=== PATIENT | female | born 1955 | race Hispanic/Latino ===

== ENCOUNTER 2020-07-13 15:31 | Inpatient (IN) | payer MEDICARE, MEDICAID ==
[2020-07-13] MEDS ORDERED: Ondansetron ODT 4 MG TAB PO PRN (16:18)
[2020-07-13] MEDS: Ventolin HFA Inhaler 60 PUFF INHALER INH SCH ×2 (18:15→21:28)
[2020-07-13] MEDS: Atorvastatin Calcium 20 MG TAB PO SCH (21:28)
[2020-07-13] MEDS: Doxycycline 100 MG CAP PO SCH (21:28)
[2020-07-13] MEDS: guaiFENesin ER 600 MG TAB PO SCH (21:28)
[2020-07-13] MEDS: Enoxaparin Sodium 40 MG/0.4 ML SYRINGE SC SCH (21:29)
[2020-07-13] MEDS: Mometasone/Formoterol 200/5 60 PUFF INH SCH (21:35)
[2020-07-14] MEDS: Ventolin HFA Inhaler 60 PUFF INHALER INH SCH ×6 (00:54→21:21)
[2020-07-14 07:17] LABS: Albumin 3.3 g/dL (3.4-4.8); Anion Gap 15 mmol/L (10-20); BUN (Urea Nitrogen) 25 mg/dL (9.8-20.1); Bilirubin, Total 0.5 mg/dL (0.2-1.2); Calc. Creatinine Clearance 149 mL/min (70-130); Calcium 8.9 mg/dL (7.8-10.44); Carbon Dioxide 24 mmol/L (23-31); Chloride 106 mmol/L (98-107); Glucose 104 mg/dL (80-115); Potassium 3.9 mmol/L (3.5-5.1); Protein, Total 6.7 g/dL (5.8-8.1); Sodium 141 mmol/L (136-145)
[2020-07-14 07:18] LABS: ALT (SGPT) 51 U/L (8-55); AST (SGOT) 23 U/L (5-34); Alkaline Phosphatase 54 U/L (40-110); Globulin 3.4 g/dL (2.4-3.5)
[2020-07-14 07:25] LABS: #Lymphocytes 2.2 thou/uL (1.20-3.40); #Monocytes 0.5 thou/uL (0.11-0.59); #Neutrophils 3.2 thou/uL (1.40-6.50); %Basophils 0.7 % (0.0-1.0); %Eosinophils 0.1 % (0.0-10.0); %Lymphocytes 37.2 % (21.0-51.0); %Monocytes 8.5 % (0.0-10.0); %Neutrophils 53.5 % (42.0-75.0); Hemoglobin 13.2 g/dL (12.0-16.0); Mean Corpuscular HGB CONC 31.9 g/dL (32.0-36.0); Mean Corpuscular Hemoglobin 28.4 pg (27.0-31.0); Mean Corpuscular Volume 88.8 fL (78.0-98.0); Mean Platelet Volume 6.3 fL (7.4-10.4); Platelet Count 318 thou/uL (130-400); RBC Distribution Width 12.4 % (11.5-14.5); Red Blood Cell (RBC) Count 4.66 mill/uL (4.20-5.40); White Blood Cell (WBC) Count 5.9 thou/uL (4.8-10.8)
[2020-07-14] MEDS: Dexamethasone 4 MG TAB PO SCH (09:29)
[2020-07-14] MEDS: Ascorbic Acid 500 mg Chewable Tablet PO SCH (09:29)
[2020-07-14] MEDS: Cholecalciferol (Vitamin D3) 400 UNITS TAB PO SCH (09:29)
[2020-07-14] MEDS: Doxycycline 100 MG CAP PO SCH ×2 (09:30→21:01)
[2020-07-14] MEDS: Enoxaparin Sodium 40 MG/0.4 ML SYRINGE SC SCH ×2 (09:30→21:00)
[2020-07-14] MEDS: Multivitamin W/ Minerals 1 TAB PO SCH (09:31)
[2020-07-14] MEDS: guaiFENesin ER 600 MG TAB PO SCH ×2 (09:31→21:00)
[2020-07-14] MEDS: Zinc Sulfate 220 MG CAP PO SCH (09:32)
[2020-07-14] MEDS: Mometasone/Formoterol 200/5 60 PUFF INH SCH ×2 (09:34→21:21)
--- NOTE | 2020-07-14 19:35 | HP ---
PRINCIPAL DIAGNOSIS: Recent COVID-19 infection with acute on chronic hypoxemic respiratory failure. SECONDARY DIAGNOSES: 1. Morbid obesity. 2. Obesity hypoventilation syndrome. 3. Hypertension. 4. Dyslipidemia. 5. Osteoarthritis. 6. Possible reactive airway disease, here for therapy and titration of her oxygen. BRIEF HISTORY: This is a 64-year-old morbidly obese female, who apparently was exposed to COVID through her friend. She started noticing shortness of breath and extreme fatigue and presented to the emergency room on July 05, at which time, she underwent COVID test. This came back positive and so she came back into the ER with worsening shortness of breath on the . She was admitted to the hospital and treated with IV Decadron, zinc, vitamin C, and vitamin D and oxygen was adjusted. She required 4 L of oxygen as she normally is on 3. She also was extremely anxious. She has remained stable on the above treatment and was ready for discharge home, but the patient was very anxious and tearful and apparently worried as she lives by herself and so was felt stable to come here for continued monitoring of her oxygen levels and therapy before she goes home. Currently, the patient is up in her chair and denies any complaints. She denies any fever or chills. No family at bedside. PAST MEDICAL HISTORY: 1. Diabetes mellitus type 2. 2. Hypertension. 3. Dyslipidemia. 4. Possible reactive airway disease. 5. Morbid obesity. 6. Obesity hypoventilation syndrome resulting in chronic hypoxemic respiratory failure. PAST SURGICAL HISTORY: None significant. PSYCHOSOCIAL HISTORY: The patient lives at home alone. Denies any tobacco, alcohol, or recreational drug abuse. FAMILY HISTORY: Noncontributory to current admission. ALLERGIES: NO KNOWN DRUG ALLERGIES. MEDICATIONS: She has been transferred here on the following medications; 1. Ventolin inhaler two puffs q.4 scheduled. 2. Vitamin C 1000 mg daily. 3. Lipitor 20 mg daily. 4. Vitamin D 400 units daily. 5. Decadron 6 mg daily till the , then Decadron 3 mg daily from the to . 6. Doxycycline 100 mg b.i.d. 7. Lovenox 40 mg subcu b.i.d. 8. Ergocalciferol 1.25 mg every 7 days. 9. Mucinex 600 mg b.i.d. 10. Multivitamin one tablet daily. 11. Dulera two puffs b.i.d., gargle after use. 12. Zofran ODT 4 mg q.6h p.r.n. 13. Pantoprazole 40 mg daily. 14. Zinc sulfate 220 daily. REVIEW OF SYSTEMS: RESPIRATORY SYSTEM: Denies any chronic cough. Her cough is actually improving. Denies any hemoptysis or pleuritic-type chest pain. Improving shortness of breath. CARDIOVASCULAR SYSTEM: Denies any chest pain, PND, orthopnea, or pedal edema or palpitations. GASTROINTESTINAL SYSTEM: Denies any nausea, vomiting, diarrhea, constipation, hematemesis, melena, or hematochezia. GENITOURINARY SYSTEM: Denies any frequency, urgency, dysuria, or hematuria. CENTRAL NERVOUS SYSTEM: Generalized weakness. Denies any fainting spells or seizure-like activity. EXTREMITIES: Occasional joint pains. SKIN: Denies any rash. ENT: Denies any changes with speech, vision, hearing, or swallowing. PHYSICAL EXAMINATION: GENERAL: This is a pleasant 64-year-old morbidly obese female, who is up in her chair and denies any complaints. She is alert, awake, and oriented x3. VITAL SIGNS: She is afebrile. Heart rate 72, respirations 20, oxygen saturation 93% on 3.5 L nasal cannula, blood pressure is 130/62. HEENT: Normocephalic and atraumatic. Pupils are equally reactive to light and accommodation. Extraocular muscles intact. No JVD, thyromegaly, cervical adenopathy, or throat exudates. No carotid bruits. CARDIOVASCULAR SYSTEM: S1, S2 plus. Rate and rhythm regular. RESPIRATORY SYSTEM: Normal vesicular breath sounds heard in all lung jara with decreased air entry in the bases. Occasional rhonchi. ABDOMEN: Soft, obese, nontender. Bowel sounds heard in all quadrants. No organomegaly. No palpable mass. No CV angle tenderness. EXTREMITIES: Without cyanosis or clubbing. Trace pedal edema. Peripheral pulses are palpable. CENTRAL NERVOUS SYSTEM: Awake and responsive. Cranial nerves 2 through 12 intact. Grossly nonfocal. LABORATORY DATA: Laboratory values done this morning shows a white count of 5.9, H and H are 13.2 and 41.4. Sodium 141, potassium 3.9, BUN and creatinine 25 . IMPRESSION: 1. Resolving COVID-19 infection. 2. Acute on chronic hypoxemic respiratory failure. 3. Obesity hypoventilation syndrome. 4. Possible reactive airway disease/asthma. 5. Hypertension. 6. Dyslipidemia. 7. Deconditioning. PLAN: 1. Continue current medications. 2. Heart healthy diet. 3. Monitor blood pressure and adjust medications as needed. 4. Respiratory droplet precautions. 5. Monitor respiratory status. 6. DVT prophylaxis-the patient is on Lovenox b.i.d. 7. Decubitus precautions. 8. Stress ulcer prophylaxis. 9. PT/OT eval and treat. 10. The test was done on the , so she should be able to come off isolation tomorrow, which should be 10 days. 11. Routine laboratory values. 12. Dr. Zapien or Dr. Araya covering for me rest of this week. Job ID: [id number]
[2020-07-14] MEDS: Atorvastatin Calcium 20 MG TAB PO SCH (21:01)
[2020-07-15] MEDS: Ventolin HFA Inhaler 60 PUFF INHALER INH SCH ×6 (00:30→21:34)
[2020-07-15] MEDS: Ascorbic Acid 500 mg Chewable Tablet PO SCH (09:33)
[2020-07-15] MEDS: Cholecalciferol (Vitamin D3) 400 UNITS TAB PO SCH (09:33)
[2020-07-15] MEDS: Dexamethasone 4 MG TAB PO SCH (09:34)
[2020-07-15] MEDS: guaiFENesin ER 600 MG TAB PO SCH ×2 (09:35→21:29)
[2020-07-15] MEDS: Doxycycline 100 MG CAP PO SCH ×2 (09:35→21:30)
[2020-07-15] MEDS: Enoxaparin Sodium 40 MG/0.4 ML SYRINGE SC SCH ×2 (09:35→21:29)
[2020-07-15] MEDS: Mometasone/Formoterol 200/5 60 PUFF INH SCH ×2 (09:35→21:35)
[2020-07-15] MEDS: Multivitamin W/ Minerals 1 TAB PO SCH (09:40)
[2020-07-15] MEDS: Zinc Sulfate 220 MG CAP PO SCH (09:41)
[2020-07-15] MEDS: Atorvastatin Calcium 20 MG TAB PO SCH (21:29)
[2020-07-16] MEDS: Ventolin HFA Inhaler 60 PUFF INHALER INH SCH ×6 (00:42→21:08)
[2020-07-16] MEDS: Cholecalciferol (Vitamin D3) 400 UNITS TAB PO SCH (09:30)
[2020-07-16] MEDS: Multivitamin W/ Minerals 1 TAB PO SCH (09:30)
[2020-07-16] MEDS: Enoxaparin Sodium 40 MG/0.4 ML SYRINGE SC SCH ×2 (09:30→21:07)
[2020-07-16] MEDS: guaiFENesin ER 600 MG TAB PO SCH ×2 (09:31→21:07)
[2020-07-16] MEDS: Zinc Sulfate 220 MG CAP PO SCH (09:31)
[2020-07-16] MEDS: Dexamethasone 4 MG TAB PO SCH (09:31)
[2020-07-16] MEDS: Doxycycline 100 MG CAP PO SCH ×2 (09:32→21:07)
[2020-07-16] MEDS: Ascorbic Acid 500 mg Chewable Tablet PO SCH (09:32)
[2020-07-16] MEDS: Mometasone/Formoterol 200/5 60 PUFF INH SCH ×2 (09:32→21:09)
[2020-07-16] MEDS: Acetaminophen 500 MG TAB PO PRN (17:27)
[2020-07-16] MEDS: Atorvastatin Calcium 20 MG TAB PO SCH (21:07)
[2020-07-17] MEDS: Ventolin HFA Inhaler 60 PUFF INHALER INH SCH ×6 (00:24→20:50)
--- NOTE | 2020-07-17 09:18 | PRG ---
DATE OF SERVICE: 07/17/2020 SUBJECTIVE: This is a 64-year-old morbidly obese female, who is here for PT and OT services following a COVID infection. REVIEW OF SYSTEMS: Denies any fever, chills, cough, congestion, nausea, vomiting, diarrhea. Overall, the patient is doing well. No complaints. No concerns from the nursing staff. OBJECTIVE: VITAL SIGNS: Temperature 96.8, pulse 89, respirations 20, O2 sats 95 on 3 L nasal cannula, blood pressure 111/59. GENERAL: A pleasant 64-year-old morbidly obese female up in her chair with no complaints today, in no acute distress. CARDIOVASCULAR: Regular rate and rhythm. No murmurs, gallops, or rubs. RESPIRATORY: Clear to auscultation bilaterally. No wheezes, but does have occasional rhonchi. ABDOMEN: Soft, nontender to palpation. Bowel sounds positive in all four quadrants. EXTREMITIES: Trace pedal edema. NEUROLOGIC: Alert and oriented x4. Pleasant. IMPRESSION: 1. Resolving COVID-19 infection. 2. Status post acute hypoxemic respiratory failure, but with chronic hypoxemic respiratory failure. 3. Obesity hypoventilation syndrome. 4. Possible reactive airway disease. 5. Hypertension. 6. Dyslipidemia. 7. Deconditioning. PLAN: 1. The patient is now off COVID precautions. Continue to use a 95% mask, stiff. The patient nebulized treatments. 2. Heart healthy diet. 3. Monitor blood pressure and adjust medications as needed. 4. DVT prophylaxis, on Lovenox b.i.d. 5. Decubitus precautions. 6. Stress ulcer prophylaxis. 7. PT and OT services. 8. Routine laboratory values. Job ID: [id number]
[2020-07-17] MEDS: Ascorbic Acid 500 mg Chewable Tablet PO SCH (09:36)
[2020-07-17] MEDS: Dexamethasone 4 MG TAB PO SCH (09:36)
[2020-07-17] MEDS: Cholecalciferol (Vitamin D3) 400 UNITS TAB PO SCH (09:36)
[2020-07-17] MEDS: Zinc Sulfate 220 MG CAP PO SCH (09:37)
[2020-07-17] MEDS: Multivitamin W/ Minerals 1 TAB PO SCH (09:37)
[2020-07-17] MEDS: guaiFENesin ER 600 MG TAB PO SCH ×2 (09:38→20:49)
[2020-07-17] MEDS: Enoxaparin Sodium 40 MG/0.4 ML SYRINGE SC SCH ×2 (09:38→20:50)
[2020-07-17] MEDS: Mometasone/Formoterol 200/5 60 PUFF INH SCH ×2 (09:39→20:51)
[2020-07-17] MEDS: Doxycycline 100 MG CAP PO SCH ×2 (09:40→20:49)
[2020-07-17] MEDS: Atorvastatin Calcium 20 MG TAB PO SCH (20:49)
[2020-07-18] MEDS: Ventolin HFA Inhaler 60 PUFF INHALER INH SCH ×6 (01:25→21:04)
[2020-07-18] MEDS: Mometasone/Formoterol 200/5 60 PUFF INH SCH ×2 (09:32→21:05)
[2020-07-18] MEDS: guaiFENesin ER 600 MG TAB PO SCH ×2 (09:33→21:04)
[2020-07-18] MEDS: Cholecalciferol (Vitamin D3) 400 UNITS TAB PO SCH (09:33)
[2020-07-18] MEDS: Zinc Sulfate 220 MG CAP PO SCH (09:33)
[2020-07-18] MEDS: Multivitamin W/ Minerals 1 TAB PO SCH (09:33)
[2020-07-18] MEDS: Dexamethasone 4 MG TAB PO SCH (09:33)
[2020-07-18] MEDS: Doxycycline 100 MG CAP PO SCH ×2 (09:33→21:04)
[2020-07-18] MEDS: Ascorbic Acid 500 mg Chewable Tablet PO SCH (09:33)
[2020-07-18] MEDS: Enoxaparin Sodium 40 MG/0.4 ML SYRINGE SC SCH ×2 (09:34→21:04)
[2020-07-18] MEDS: Atorvastatin Calcium 20 MG TAB PO SCH (21:04)
[2020-07-19] MEDS: Ventolin HFA Inhaler 60 PUFF INHALER INH SCH ×6 (00:54→20:21)
[2020-07-19] MEDS: Acetaminophen 500 MG TAB PO PRN (05:12)
[2020-07-19] MEDS: Dexamethasone 1 MG TAB PO SCH (08:51)
[2020-07-19] MEDS: Ascorbic Acid 500 mg Chewable Tablet PO SCH (08:51)
[2020-07-19] MEDS: Cholecalciferol (Vitamin D3) 400 UNITS TAB PO SCH (08:51)
[2020-07-19] MEDS: Mometasone/Formoterol 200/5 60 PUFF INH SCH ×2 (08:52→20:19)
[2020-07-19] MEDS: Enoxaparin Sodium 40 MG/0.4 ML SYRINGE SC SCH ×2 (08:52→20:18)
[2020-07-19] MEDS: guaiFENesin ER 600 MG TAB PO SCH ×2 (08:52→20:16)
[2020-07-19] MEDS: Doxycycline 100 MG CAP PO SCH ×2 (08:52→20:16)
[2020-07-19] MEDS: Multivitamin W/ Minerals 1 TAB PO SCH (08:53)
[2020-07-19] MEDS: Zinc Sulfate 220 MG CAP PO SCH (08:55)
--- NOTE | 2020-07-19 13:53 | PRG ---
DATE OF SERVICE: 07/19/2020 SUBJECTIVE: Ms. Wakefield is out of isolation. She has been walking in the hallway. She is now in room 146. She is very happy with her progress. She is back to her baseline level of oxygen. OBJECTIVE: VITAL SIGNS: She is afebrile, heart rate is 68, respirations 18, oxygen saturation 98% on 3 L, blood pressure 124/59. CARDIOVASCULAR SYSTEM: S1 and S2 plus. RESPIRATORY SYSTEM: Normal vesicular breath sounds. ABDOMEN: Soft, nontender, obese. Bowel sounds heard in all quadrants. EXTREMITIES: Without cyanosis or clubbing. CENTRAL NERVOUS SYSTEM: Awake and responsive. Cranial nerves 2 through 12 intact. Generalized weakness. LABORATORY DATA: Laboratory values are pending. IMPRESSION: 1. Hypertension. 2. Dyslipidemia. 3. Morbid obesity. 4. Obesity hypoventilation syndrome. 5. Possible reactive airway disease. 6. Recent COVID-19 infection. PLAN: 1. Continue current medications. 2. Heart healthy diet. 3. Monitor respiratory status. 4. Titrate oxygen. 5. DVT prophylaxis with Lovenox. 6. Decubitus precaution. 7. Stress ulcer prophylaxis. 8. Physical therapy. 9. Discharge planning. Job ID: [id number]
[2020-07-19] MEDS: Atorvastatin Calcium 20 MG TAB PO SCH (20:16)
[2020-07-20] MEDS: Ventolin HFA Inhaler 60 PUFF INHALER INH SCH ×6 (01:23→22:20)
[2020-07-20] MEDS: Acetaminophen 500 MG TAB PO PRN (08:33)
[2020-07-20] MEDS: Dexamethasone 1 MG TAB PO SCH (08:35)
[2020-07-20] MEDS: Cholecalciferol (Vitamin D3) 400 UNITS TAB PO SCH (08:35)
[2020-07-20] MEDS: Ascorbic Acid 500 mg Chewable Tablet PO SCH (08:35)
[2020-07-20] MEDS: Enoxaparin Sodium 40 MG/0.4 ML SYRINGE SC SCH ×2 (08:36→20:48)
[2020-07-20] MEDS: guaiFENesin ER 600 MG TAB PO SCH ×2 (08:36→20:47)
[2020-07-20] MEDS: Doxycycline 100 MG CAP PO SCH ×2 (08:36→20:48)
[2020-07-20] MEDS: Multivitamin W/ Minerals 1 TAB PO SCH (08:37)
[2020-07-20] MEDS: Mometasone/Formoterol 200/5 60 PUFF INH SCH ×2 (08:37→20:49)
[2020-07-20] MEDS: Zinc Sulfate 220 MG CAP PO SCH (08:38)
[2020-07-20] MEDS ORDERED: Ergocalciferol 1.25 MG(50,000 UNITS) CAP PO SCH (09:00)
[2020-07-20 10:17] VITALS: BMI 50.3
--- NOTE | 2020-07-20 13:52 | PRG ---
DATE OF SERVICE: 07/20/2020 SUBJECTIVE: Ms. Wakefield is doing well. She is happy with the progress. She feels like she is getting stronger. She denies any questions or concerns. She is down to 1-2 L of oxygen. OBJECTIVE: VITAL SIGNS: She is afebrile. Heart rate 72, respirations 18, oxygen saturation 95%, currently on 1 L, blood pressure is 112/60. CARDIOVASCULAR SYSTEM: S1-S2 plus. RESPIRATORY SYSTEM: Normal vesicular breath sounds. ABDOMEN: Soft, obese, nontender. Bowel sounds heard in all quadrants. EXTREMITIES: Without cyanosis, clubbing. CENTRAL NERVOUS SYSTEM: Awake and responsive. Cranial nerves II through XII intact. Generalized weakness. IMPRESSION: 1. Recent coronavirus disease 2019 infection. 2. Resolved acute on chronic hypoxemic respiratory failure. 3. Possible reactive airway disease. 4. Improving deconditioning. 5. Hypertension. 6. Dyslipidemia. 7. Morbid obesity. PLAN: 1. Continue current medications. 2. Heart healthy diet. 3. Monitor respiratory status and breathing treatments as needed. 4. Encouraged use of incentive spirometry. 5. DVT prophylaxis with Lovenox. 6. Decubitus precaution. 7. Continue therapy. 8. Routine laboratory values. Job ID: [id number]
[2020-07-20] MEDS: Atorvastatin Calcium 20 MG TAB PO SCH (20:47)
[2020-07-21] MEDS: Ventolin HFA Inhaler 60 PUFF INHALER INH SCH ×6 (01:12→20:44)
[2020-07-21 05:41] LABS: #Lymphocytes 2.6 thou/uL (1.20-3.40); #Monocytes 0.5 thou/uL (0.11-0.59); #Neutrophils 3.5 thou/uL (1.40-6.50); %Basophils 0.4 % (0.0-1.0); %Monocytes 7.9 % (0.0-10.0); %Neutrophils 52.7 % (42.0-75.0); Hemoglobin 12.2 g/dL (12.0-16.0); Mean Corpuscular HGB CONC 32.7 g/dL (32.0-36.0); Mean Corpuscular Hemoglobin 28.9 pg (27.0-31.0); Mean Corpuscular Volume 88.3 fL (78.0-98.0); Mean Platelet Volume 5.8 fL (7.4-10.4); Platelet Count 243 thou/uL (130-400); Red Blood Cell (RBC) Count 4.23 mill/uL (4.20-5.40); White Blood Cell (WBC) Count 6.6 thou/uL (4.8-10.8)
[2020-07-21] MEDS: Acetaminophen 500 MG TAB PO PRN (05:41)
[2020-07-21 05:54] LABS: Anion Gap 14 mmol/L (10-20); BUN (Urea Nitrogen) 17 mg/dL (9.8-20.1); Calc. Creatinine Clearance 159 mL/min (70-130); Calcium 8.4 mg/dL (7.8-10.44); Carbon Dioxide 27 mmol/L (23-31); Chloride 103 mmol/L (98-107); Glucose 106 mg/dL (80-115); Potassium 3.9 mmol/L (3.5-5.1); Sodium 140 mmol/L (136-145)
[2020-07-21] MEDS: Mometasone/Formoterol 200/5 60 PUFF INH SCH ×2 (08:13→20:43)
[2020-07-21] MEDS: Enoxaparin Sodium 40 MG/0.4 ML SYRINGE SC SCH ×2 (08:14→20:44)
[2020-07-21] MEDS: Dexamethasone 1 MG TAB PO SCH (08:15)
[2020-07-21] MEDS: Multivitamin W/ Minerals 1 TAB PO SCH (08:15)
[2020-07-21] MEDS: Zinc Sulfate 220 MG CAP PO SCH (08:15)
[2020-07-21] MEDS: Ascorbic Acid 500 mg Chewable Tablet PO SCH (08:16)
[2020-07-21] MEDS: guaiFENesin ER 600 MG TAB PO SCH ×2 (08:16→20:44)
[2020-07-21] MEDS: Cholecalciferol (Vitamin D3) 400 UNITS TAB PO SCH (08:16)
[2020-07-21] MEDS: Doxycycline 100 MG CAP PO SCH ×2 (08:22→20:45)
--- NOTE | 2020-07-21 14:16 | PRG ---
DATE OF SERVICE: 07/21/2020 SUBJECTIVE: Ms. Wakefield is up in her chair. She denies any complaints. She apparently ambulated in the hallways without any oxygen. Apparently, the documentation in the previous medical record is wrong. She does not have oxygen at home. She only uses CPAP at home, so the plan is for therapy to try to get her off the oxygen and estimated length of stay for another week. The patient is agreeable. OBJECTIVE: VITAL SIGNS: She is afebrile, heart rate 88, respirations 22, oxygen saturation 95%, ranging from 1 to 2 L, blood pressure 115/59. CARDIOVASCULAR SYSTEM: S1 and S2 plus. RESPIRATORY SYSTEM: Normal vesicular breath sounds. ABDOMEN: Soft, obese, nontender. Bowel sounds heard in all quadrants. EXTREMITIES: Without cyanosis or clubbing. CENTRAL NERVOUS SYSTEM: Awake and responsive. Generalized weakness. Improving deconditioning. LABORATORY VALUES: White count is 6.6, H and H are 12.2 and 37.4. Sodium 140, potassium 3.9, BUN and creatinine 17 and 0.58. IMPRESSION: 1. Recent COVID-19 infection. 2. Acute hypoxemic respiratory failure. 3. Obstructive sleep apnea. 4. Improving deconditioning. 5. Reactive airway disease. 6. Hypertension. 7. Dyslipidemia. 8. Morbid obesity. PLAN: 1. Continue current medications. 2. Heart healthy diet. 3. Titrate oxygen as tolerated. 4. Monitor respiratory status. 5. DVT prophylaxis with Lovenox. 6. Decubitus precaution. 7. Stress ulcer prophylaxis. 8. Routine laboratory values. 9. Continue therapy. 10. Discharge planning. Job ID: [id number]
[2020-07-21] MEDS: Atorvastatin Calcium 20 MG TAB PO SCH (20:44)
[2020-07-22] MEDS: Ventolin HFA Inhaler 60 PUFF INHALER INH SCH ×6 (00:01→21:37)
[2020-07-22] MEDS: Ascorbic Acid 500 mg Chewable Tablet PO SCH (08:32)
[2020-07-22] MEDS: Enoxaparin Sodium 40 MG/0.4 ML SYRINGE SC SCH ×2 (08:32→21:36)
[2020-07-22] MEDS: Cholecalciferol (Vitamin D3) 400 UNITS TAB PO SCH (08:33)
[2020-07-22] MEDS: guaiFENesin ER 600 MG TAB PO SCH ×2 (08:33→21:36)
[2020-07-22] MEDS: Dexamethasone 1 MG TAB PO SCH (08:33)
[2020-07-22] MEDS: Zinc Sulfate 220 MG CAP PO SCH (08:33)
[2020-07-22] MEDS: Multivitamin W/ Minerals 1 TAB PO SCH (08:33)
[2020-07-22] MEDS: Mometasone/Formoterol 200/5 60 PUFF INH SCH ×2 (08:34→21:35)
[2020-07-22] MEDS: Doxycycline 100 MG CAP PO SCH (08:35)
[2020-07-22] MEDS: Acetaminophen 500 MG TAB PO PRN (10:30)
--- NOTE | 2020-07-22 14:02 | PRG ---
DATE OF SERVICE: 07/22/2020 SUBJECTIVE: Ms. Wakefield is up in her chair. She is off her oxygen. She apparently is doing well with therapy. They are trying to get her recertified, but if not, her last date is going to be Sunday. The patient is fine with going home on Sunday. Case Management is going to make arrangement for home health for physical therapy and nursing per therapy recommendations. The patient states that she is not going to be driving, so she will be considered homebound. She does qualify for home health given her current admission with COVID-19 and just resolved acute hypoxemic respiratory failure. She also has obstructive sleep apnea. Home health, I will again sign the initial order, but all further orders should go to her PCP. OBJECTIVE: VITAL SIGNS: She is afebrile. Heart rate is 70, respirations 16, oxygen saturation 95% on room air, and blood pressure 117/65. CARDIOVASCULAR SYSTEM: S1 and S2 plus. RESPIRATORY SYSTEM: Normal vesicular breath sounds. ABDOMEN: Soft, obese, nontender. Bowel sounds heard in all quadrants. EXTREMITIES: Without cyanosis or clubbing. CENTRAL NERVOUS SYSTEM: Improving deconditioning. IMPRESSION: 1. Recent COVID-19 infection. 2. Resolved acute hypoxemic respiratory failure. 3. Obstructive sleep apnea. 4. Possible reactive airway disease. 5. Hypertension. 6. Dyslipidemia. 7. Morbid obesity. 8. Improving deconditioning. PLAN: 1. Continue current medications. 2. Continue to monitor respiratory status and resume oxygen if needed. 3. Heart healthy diet. 4. DVT prophylaxis with Lovenox. 5. Decubitus precautions. 6. Stress ulcer prophylaxis. 7. Discharge planning. Job ID: [id number]
[2020-07-22] MEDS: Atorvastatin Calcium 20 MG TAB PO SCH (21:36)
[2020-07-23] MEDS: Ventolin HFA Inhaler 60 PUFF INHALER INH SCH ×6 (00:58→21:11)
[2020-07-23] MEDS: Acetaminophen 500 MG TAB PO PRN (01:59)
[2020-07-23] MEDS: Cholecalciferol (Vitamin D3) 400 UNITS TAB PO SCH (10:12)
[2020-07-23] MEDS: Ascorbic Acid 500 mg Chewable Tablet PO SCH (10:12)
[2020-07-23] MEDS: Multivitamin W/ Minerals 1 TAB PO SCH (10:12)
[2020-07-23] MEDS: guaiFENesin ER 600 MG TAB PO SCH ×2 (10:13→21:09)
[2020-07-23] MEDS: Zinc Sulfate 220 MG CAP PO SCH (10:13)
[2020-07-23] MEDS: Enoxaparin Sodium 40 MG/0.4 ML SYRINGE SC SCH ×2 (10:13→21:10)
[2020-07-23] MEDS: Mometasone/Formoterol 200/5 60 PUFF INH SCH ×2 (10:15→21:10)
[2020-07-23] MEDS: Atorvastatin Calcium 20 MG TAB PO SCH (21:09)
[2020-07-24] MEDS: Acetaminophen 500 MG TAB PO PRN ×2 (00:03→20:41)
[2020-07-24] MEDS: Ventolin HFA Inhaler 60 PUFF INHALER INH SCH ×6 (00:04→20:43)
[2020-07-24] MEDS: Ascorbic Acid 500 mg Chewable Tablet PO SCH (08:29)
[2020-07-24] MEDS: Cholecalciferol (Vitamin D3) 400 UNITS TAB PO SCH (08:29)
[2020-07-24] MEDS: guaiFENesin ER 600 MG TAB PO SCH ×2 (08:29→20:41)
[2020-07-24] MEDS: Mometasone/Formoterol 200/5 60 PUFF INH SCH ×2 (08:29→20:42)
[2020-07-24] MEDS: Enoxaparin Sodium 40 MG/0.4 ML SYRINGE SC SCH ×2 (08:29→20:42)
[2020-07-24] MEDS: Zinc Sulfate 220 MG CAP PO SCH (08:30)
[2020-07-24] MEDS: Multivitamin W/ Minerals 1 TAB PO SCH (08:30)
--- NOTE | 2020-07-24 10:23 | PRG ---
DATE OF SERVICE: 07/23/2020 SUBJECTIVE: Ms. Wakefield is up on the side of her bed. She is off her oxygen. She is happy with her progress. Plan is for her to be discharged home on Sunday. I have sent in a month's supply on all her medications to her pharmacy which is [facility] on [facility]. No concerns or questions. OBJECTIVE: VITAL SIGNS: She is afebrile. Heart rate is 84, respirations 20, oxygen saturation 93% on room air, blood pressure 137/63. CARDIOVASCULAR SYSTEM: S1-S2 plus. RESPIRATORY SYSTEM: Normal vesicular breath sounds. ABDOMEN: Soft, obese, nontender. Bowel sounds heard in all quadrants. EXTREMITIES: Without cyanosis, clubbing. Trace edema. CENTRAL NERVOUS SYSTEM: Awake and responsive. Cranial nerves 2 through 12 intact. Grossly nonfocal. IMPRESSION: 1. Recent COVID-19 infection. 2. Resolved acute hypoxemic respiratory failure. 3. Obstructive sleep apnea. 4. Morbid obesity. 5. Hypertension. 6. Dyslipidemia. 7. Reactive airway disease and improving deconditioning. PLAN: 1. Continue current medications. 2. Continue to monitor respiratory status. 3. Physical therapy. 4. Discharge planning. 5. Heart healthy diet. 6. Outpatient followup with PCP. 7. Resume CPAP at home. 8. Dr. Zapien on-call this weekend. Discharge med reconciliation done as well as all her medicines sent in to her [facility]. Job ID: [id number]
[2020-07-24] MEDS: Atorvastatin Calcium 20 MG TAB PO SCH (20:41)
[2020-07-25] MEDS: Ventolin HFA Inhaler 60 PUFF INHALER INH SCH ×3 (00:02→08:38)
[2020-07-25 08:06] VITALS: BP 81/42; TEMP 98
[2020-07-25] MEDS: Enoxaparin Sodium 40 MG/0.4 ML SYRINGE SC SCH (08:36)
[2020-07-25] MEDS: guaiFENesin ER 600 MG TAB PO SCH (08:36)
[2020-07-25] MEDS: Mometasone/Formoterol 200/5 60 PUFF INH SCH (08:36)
[2020-07-25] MEDS: Ascorbic Acid 500 mg Chewable Tablet PO SCH (08:36)
[2020-07-25] MEDS: Cholecalciferol (Vitamin D3) 400 UNITS TAB PO SCH (08:36)
[2020-07-25] MEDS: Multivitamin W/ Minerals 1 TAB PO SCH (08:37)
[2020-07-25] MEDS: Zinc Sulfate 220 MG CAP PO SCH (08:39)
== END 2020-07-25 10:45 | disposition home or self-care (01) | DRG 177 ==
LOC: NAV ACUTE 15:31
PROVIDERS: ADMIT Internal Medicine; ATTEND Internal Medicine
DX: U07.1 COVID-19 (principal); J96.21 Acute and chronic respiratory failure with hypoxia; E66.2 Morbid (severe) obesity with alveolar hypoventilation; Z68.43 Body mass index [BMI] 50.0-59.9, adult; I10 Essential (primary) hypertension; R53.81 Other malaise; E78.5 Hyperlipidemia, unspecified; M19.90 Unspecified osteoarthritis, unspecified site; E11.9 Type 2 diabetes mellitus without complications; Z79.899 Other long term (current) drug therapy; G47.33 Obstructive sleep apnea (adult) (pediatric); J45.909 Unspecified asthma, uncomplicated
CPT/HCPCS: 80048; 80053; 85025; 94664; J1650; J8540